=== PATIENT | female | born 1975 | race American Indian/Alaskan Native ===

== ENCOUNTER 2016-05-18 04:42 | Emergency (ER) | payer SELFPAY ==
[2016-05-18 04:51] VITALS: BP 115/78
[2016-05-18 05:16] LABS: Bacteria,Urine 1+ /HPF (Negative); Bilirubin,Urine NEG (Negative); Blood,Urine MOD (Negative); Ketones,Urine NEG (Negative); Leukocyte Esterase,Urine NEG (Negative); Mucus,Urine FEW /HPF; Nitrite,Urine NEG (Negative); Protein,Urine <15 mg/dL mg/dL (Negative); Urobilinogen,Urine < 2.0 mg/dL (<2.0)
[2016-05-18 05:34] LABS: Basophils % (Auto) 0.5 % (0.0-1.8); Eosinophils % (Auto) 2.1 % (0.0-4.3); Hematocrit 38.1 % (30.3-42.9); Hemoglobin 12.9 gm/dl (10.1-14.3); Mean Corpuscular HGB Conc 34 % (30-34); Mean Corpuscular Hemoglobin 31 pg (28-32); Mean Corpuscular Volume 93 fl (79-97); Platelet Count 269 K/mm3 (140-440); Red Blood Count 4.11 M/mm3 (3.65-5.03); Red Cell Distribution Width 13.2 % (13.2-15.2); White Blood Count 6.7 K/mm3 (4.5-11.0)
--- NOTE | 2016-05-18 11:18 | Emergency Department Report ---
ED HPI - General Chief complaint: Vaginal Bleeding Stated complaint: 4 WKS W/SPOTTING Time Seen by Provider: 05/18/16 10:48 Source: patient Mode of arrival: Ambulatory Limitations: No Limitations - History of Present Illness Initial comments: 40-year-old 2 para 0 that is 4 weeks comes in for abdominal pain with spotting and epigastric pain. She reports that she has pink tinge discharge when wiping she complains of gas in her epigastric area she has tried Tums which has helped some. She also complains of lower pelvic type pressure. She is was not sure what to take for pain and discomfort. Does disclose that she had a miscarriage at the age of 16 that she was 6 months. 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 Patient does not have an OB at this point. Patient denies any nausea vomiting no fever no chills - Related Data Home Medications Medication Instructions Recorded Confirmed Last Taken No Known Home Medications [No 06/24/14 06/24/14 Unknown Reported Home Medications] Allergies Allergy/AdvReac Type Severity Reaction Status Date / Time No Known Allergies Allergy Unverified 06/24/14 17:04 ED Review of Systems ROS: Stated complaint: 4 WKS W/SPOTTING Other details as noted in HPI Comment: All other systems reviewed and negative Gastrointestinal: abdominal pain (epigastric and pelvic) Genitourinary: discharge (pink tinged). denies: urgency, dysuria, frequency, hematuria ED Past Medical Hx - Past Medical History Previous Medical History?: No - Surgical History Past Surgical History?: No Additional Surgical History: D&C-> stillborn at 17 years of age. - Social History Smoking Status: Former Smoker Substance Use Type: None - Medications Home Medications: Home Medications Medication Instructions Recorded Confirmed Last Taken Type No Known Home Medications [No 06/24/14 06/24/14 Unknown History Reported Home Medications] ED Physical Exam - General Limitations: No Limitations General appearance: alert, in no apparent distress - Eye Eye exam: Present: normal appearance - Respiratory Respiratory exam: Present: normal lung sounds bilaterally - Cardiovascular Cardiovascular Exam: Present: regular rate, normal rhythm - GI/Abdominal GI/Abdominal exam: Present: soft, tenderness (pelvic), normal bowel sounds. Absent: distended, guarding, rebound, rigid ED Course Vital Signs 05/18/16 04:49 Temperature 98.9 F Pulse Rate 63 Respiratory 18 Rate Blood Pressure 115/78 [Right] O2 Sat by Pulse 100 Oximetry ED Medical Decision Making - Lab Data Result diagrams: 05/18/16 05:10 - Medical Decision Making She has been evaluated by this provider in fast track. Review of labs shows that her hCG is 349.1 equivalent to 3-4 weeks . The patient that pain medication she is able to take the Tylenol [id number]. She is able to take Tums for the acid reflux. She needs to follow up with OB when she hits 6- 8 weeks. Recommend for her to take vitamins which she is taking [place] gas it which she reports she is taken. Encouraged patient to drink plenty of fluids such as water stay away from strenuous activities. Were able to roll picker the heart tones on Doppler which a rate of 174. She verbalize understanding. Critical care attestation.: If time is entered above; I have spent that time in minutes in the direct care of this critically ill patient, excluding procedure time. ED Disposition Clinical Impression: Qualifiers: Weeks of gestation: less than 8 weeks Qualified Code(s): Z3A.01 - Less than 8 weeks gestation of Disposition: DISCHARGED TO HOME OR SELFCARE Is pt being admited?: No Does the pt Need Aspirin: No Condition: Stable Instructions: (ED) Additional Instructions: Follow-up with [facility]. Tylenol for pain and tums for gas. Referrals: PRIMARY CARE, [Primary Care Provider] - 3-5 Days [facility] [Provider Group] - 3-5 Days Forms: Work/School Release Form(ED)
== END 2016-05-18 11:44 | disposition home or self-care (01) ==
LOC: ED 04:42
DX: O26.891 Other specified pregnancy related conditions, first trimester (principal); R10.2 Pelvic and perineal pain; R10.13 Epigastric pain; O99.331 Smoking (tobacco) complicating pregnancy, first trimester; Z3A.01 Less than 8 weeks gestation of pregnancy
CPT/HCPCS: 36415; 81001; 84702; 85025; 86850; 86900; 86901

== ENCOUNTER 2016-05-22 15:16 | Emergency (ER) | payer SELFPAY ==
--- NOTE | 2016-05-22 16:11 | Emergency Department Report ---
Chief Complaint: Vaginal Bleeding Stated Complaint: 4 WKS PREG FEELS LIKE MISCARRIAGE Time Seen by Provider: 05/22/16 16:08 - HPI History of Present Illness: Patient here reports that she was here on May 18, 2016 for vaginal spotting and abdominal cramping. She said they did lab work but she still having vaginal bleeding and abdominal cramping. She said the bleeding is light but she is worried because it's been ongoing. Patient lab work was checked that she was other labs were normal.She is O positive and antibody screen negative - ROS Review of Systems: All systems are negative unless stated in hpi above - Exam Vital Signs: Vital Signs 05/22/16 15:53 Temperature 98.3 F Pulse Rate 62 Blood Pressure 126/80 O2 Sat by Pulse 100 Oximetry Physical Exam: Gen: 40 yo female well-nourished , well- developed in no acute distress CV: S1S2. RRR ABD: soft. TTP in pelvic area. NL bowel sounds. no cva tenderness MSE screening note: Focused history and physical exam performed. Due to findings the following was ordered:see mdm ED Medical Decision Making - Medical Decision Making MDM: Patient seen by provider in Triage Labs: cbc, HCG quant Labs: reviewd from 05/18/2016 Diagnostics: ultrasound Patient to be seen by provider in main ed ED Disposition for MSE Condition: Stable
[2016-05-22 16:30] LABS: Basophils % (Auto) 0.4 % (0.0-1.8); Eosinophils % (Auto) 2.1 % (0.0-4.3); Hematocrit 40.4 % (30.3-42.9); Hemoglobin 13.3 gm/dl (10.1-14.3); Mean Corpuscular HGB Conc 33 % (30-34); Mean Corpuscular Hemoglobin 31 pg (28-32); Mean Corpuscular Volume 94 fl (79-97); Platelet Count 294 K/mm3 (140-440); Red Blood Count 4.31 M/mm3 (3.65-5.03); Red Cell Distribution Width 13.3 % (13.2-15.2); White Blood Count 6.2 K/mm3 (4.5-11.0)
--- NOTE | 2016-05-22 19:18 | Ultrasound Report ---
FINAL REPORT EXAM: US OB < = 14 WEEKS FETUS HISTORY: vaginal bleed at 4 weeks . LMP 04/15/2016 with expected clinical age 5 weeks 2 days and EDC 01/20/2017 TECHNIQUE: Ultrasound of the pelvis using transabdominal and transvaginal imaging PRIORS: None. FINDINGS: Uterus: Uterus is elongated in size, retroverted in position, and normal and homogeneous in echogenicity. The uterus measures 9.6 x 6.8 x 5.2 cm in size. Several distinct hypoechoic rounded fibroids are identified in the uterus. The largest is located in the posterior body measuring 3.7 x 3.0 x 3.9 cm. There is a 2nd off the left side of the uterine fundus measuring 1.9 x 1.6 x 1.7 cm. Endometrial stripe: Normal and uniform in thickness measuring 8.4 mm. There is no evidence for intrauterine gestation within the endometrial canal. There is a small amount of fluid in the cervical canal. Ovaries: Both ovaries appear normal in size and echogenicity with normal blood flow bilaterally. The right ovary measures 2.6 x 1.5 x 2.8 cm and the left ovary measures 2.8 x 1.7 x 2.3 cm in size. In the right adnexa, there is an indeterminate avascular 3.4 x 2.0 x 2.6 cm focus adjacent to the right ovary. This could represent an ectopic or a complex corpus luteum cyst. Correlation with a serum beta HCG level is recommended. Other: Minimal free fluid in the cul-de-sac is present. IMPRESSION: 1. No evidence for intrauterine gestational sac identified. 2. Indeterminate focus adjacent to the right ovary within the right adnexa. Ectopic is not excluded. Correlation with the serum beta HCG level is recommended. 3. Multiple fibroids in the uterus
--- NOTE | 2016-05-22 22:58 | Emergency Department Report ---
ED Female HPI - General Chief complaint: Vaginal Bleeding Stated complaint: 4 WKS PREG FEELS LIKE MISCARRIAGE Time Seen by Provider: 05/22/16 16:08 Source: patient, RN notes reviewed Mode of arrival: Ambulatory Limitations: No Limitations - History of Present Illness Initial comments: This is a 40-year-old female, previously unknown to me. She is 2, para 1. Last menstrual period is April 15. Does not have a private [facility] doctor. Presents to the ER complaining of vaginal spotting, vaginal cramping. Patient was seen in the emergency department on May 18. Had a positive test. Type and screen was O+. No dizziness, no lightheadedness, no chest pain, no shortness of breath. No irritative or obstructive urinary symptoms. Quantitative hCG today has decreased to the 100s. She is hemodynamically stable with a benign physical gynecologic exam. She has blood in the vaginal vault. Pelvic ultrasound demonstrates no intrauterine gestational sac. An indeterminant focus The right ovary was noted, with the radiologist stating that ectopic is not excluded. Highly doubt that the patient has an ectopic at this time. Her abdomen is soft and benign, her blood counts are stable, she has stable vital signs, and she is clinically well-appearing. Case is discussed with the [facility] on-call, Dr. Morfin. She agrees with plan for pelvic rest, activities as tolerated, and return in 48 hours for repeat physical exam and quantitative hCG. Case is discussed excessively with the patient, who appears to be reliable, and understands bleeding precautions, and return precautions. Complaint: vaginal bleeding -: Gradual, days(s) Location: suprapubic Radiation: non-radiating Severity: mild Quality: cramping Consistency: intermittent Improves with: none Worsens with: none Are you Now?: Yes Associated Symptoms: vaginal bleeding. denies: nausea/vomiting, fever/chills, headaches, loss of appetite, dysuria, hematuria, rash, seizure, shortness of breath, syncope, weakness - Related Data Sexually active: Yes Home Medications Medication Instructions Recorded Confirmed Last Taken No Known Home Medications [No 06/24/14 05/22/16 Unknown Reported Home Medications] Allergies Allergy/AdvReac Type Severity Reaction Status Date / Time No Known Allergies Allergy Unverified 06/24/14 17:04 ED Review of Systems ROS: Stated complaint: 4 WKS PREG FEELS LIKE MISCARRIAGE Other details as noted in HPI Constitutional: denies: malaise Eyes: denies: vision change ENT: denies: epistaxis Respiratory: denies: cough Cardiovascular: denies: chest pain Gastrointestinal: as per HPI Genitourinary: abnormal menses Musculoskeletal: as per HPI Skin: as per HPI. denies: lesions Neurological: denies: weakness Psychiatric: as per HPI ED Past Medical Hx - Past Medical History Previous Medical History?: No - Surgical History Additional Surgical History: D&C-> stillborn at 17 years of age. - Social History Smoking Status: Never Smoker Substance Use Type: None - Medications Home Medications: Home Medications Medication Instructions Recorded Confirmed Last Taken Type No Known Home Medications [No 06/24/14 05/22/16 Unknown History Reported Home Medications] ED Physical Exam - General Limitations: No Limitations General appearance: alert, in no apparent distress - Head Head exam: Present: atraumatic, normocephalic - Eye Eye exam: Present: normal appearance, EOMI. Absent: nystagmus - ENT ENT exam: Present: normal exam, normal orophraynx, mucous membranes moist, normal external ear exam - Neck Neck exam: Present: normal inspection, full ROM. Absent: tenderness, meningismus - Respiratory Respiratory exam: Present: normal lung sounds bilaterally. Absent: respiratory distress, wheezes, rales, rhonchi, stridor, chest wall tenderness - Cardiovascular Cardiovascular Exam: Present: regular rate, normal rhythm, normal heart sounds. Absent: bradycardia, tachycardia, irregular rhythm, systolic murmur, diastolic murmur, rubs, gallop - GI/Abdominal GI/Abdominal exam: Present: soft, normal bowel sounds. Absent: distended, tenderness, guarding, rebound, rigid, pulsatile mass - Speculum exam: Present: normal speculum exam, vaginal bleeding Bi-manual exam: Present: normal bi-manual exam, other (escorted by nurse Indiana Nash during gynecologic exam). Absent: cervical motion tendernes, adnexal tenderness, adnexal mass, uterine enlargement, uterine tenderness - Extremities Exam Extremities exam: Present: normal inspection, full ROM, normal capillary refill. Absent: tenderness, pedal edema, joint swelling, calf tenderness - Back Exam Back exam: Present: normal inspection, full ROM. Absent: tenderness, CVA tenderness (R), CVA tenderness (L), muscle spasm, paraspinal tenderness, vertebral tenderness - Neurological Exam Neurological exam: Present: alert, oriented X3, normal gait, other (Extraocular movements intact. Tongue midline. No facial droop. Facial sensation intact to light touch in the V1, V2, V3 distribution bilaterally. 5 and 5 strength in 4 extremities.. Sensation is intact to light touch in 4 extremities.). Absent : motor sensory deficit - Psychiatric Psychiatric exam: Present: normal affect, normal mood - Skin Skin exam: Present: warm, dry, intact, normal color. Absent: rash ED Course Vital Signs 05/22/16 05/22/16 05/22/16 15:53 20:48 23:33 Temperature 98.3 F Pulse Rate 62 57 L 62 Respiratory 16 18 Rate Blood Pressure 126/80 Blood Pressure 140/83 138/80 [Right] O2 Sat by Pulse 100 100 99 Oximetry ED Medical Decision Making - Lab Data Result diagrams: 05/22/16 16:21 Vital Signs 05/22/16 05/22/16 15:53 20:48 Temperature 98.3 F Pulse Rate 62 57 L Respiratory 16 Rate Blood Pressure 126/80 Blood Pressure 140/83 [Right] O2 Sat by Pulse 100 100 Oximetry Lab Results 05/22/16 05/22/16 Range/Units 16:21 16:21 WBC 6.2 (4.5-11.0) K/mm3 RBC 4.31 (3.65-5.03) M/mm3 Hgb 13.3 (10.1-14.3) gm/dl Hct 40.4 (30.3-42.9) % MCV 94 (79-97) fl MCH 31 (28-32) pg MCHC 33 (30-34) % RDW 13.3 (13.2-15.2) % Plt Count 294 (140-440) K/mm3 Lymph % (Auto) 31.7 (13.4-35.0) % [place] % (Auto) 10.0 H (0.0-7.3) % Eos % (Auto) 2.1 (0.0-4.3) % Baso % (Auto) 0.4 (0.0-1.8) % Lymph # 2.0 (1.2-5.4) K/mm3 [place] # 0.6 (0.0-0.8) K/mm3 Eos # 0.1 (0.0-0.4) K/mm3 Baso # 0.0 (0.0-0.1) K/mm3 Seg Neutrophils % 55.8 (40.0-70.0) % Seg Neutrophils # 3.5 (1.8-7.7) K/mm3 HCG, Quant 159.3 H (0-4) mIU/mL - Radiology Data Radiology results: report reviewed, image reviewed Obstetric ultrasound demonstrates numerous fibroids. No intrauterine is noted. There is minimal free fluid noted in the cul-de-sac. Indeterminate focus next to the right ovary within the right adnexa. Ectopic is not excluded. Multiple fibroids noted. Critical care attestation.: If time is entered above; I have spent that time in minutes in the direct care of this critically ill patient, excluding procedure time. ED Disposition Clinical Impression: Disposition: DISCHARGED TO HOME OR SELFCARE Is pt being admited?: No Does the pt Need Aspirin: No Condition: Stable Instructions: Spontaneous Miscarriage (ED) Additional Instructions: Laboratory studies indicated decreasing blood test number. Symptoms most likely attributed to miscarriage. Rest and avoid heavy lifting. Avoid sex , and strenuous physical activity. Return in 2 days for repeat quantitative hCG / blood test and physical examination. Do not engage in sexual activity. Return to the ER right away with severe pain, nausea or vomiting, passing out, bleeding more than 2 pads soaked through and through per hour. Follow up with her c2 tactical analysis technician within the next [address] Morfin is a local c2 tactical analysis technician. Referrals: PRIMARY MD [facility] [Primary Care Provider] - 3-5 Days CORINE MORFIN MD [Staff Physician] - 3-5 Days
[2016-05-22 23:34] VITALS: BP 138/80
== END 2016-05-22 23:34 | disposition home or self-care (01) ==
LOC: ED 15:16
DX: O26.859 Spotting complicating pregnancy, unspecified trimester (principal); Z3A.00 Weeks of gestation of pregnancy not specified
CPT/HCPCS: 36415; 76801; 76817; 84702; 85025